=== PATIENT | male | born 1995 | race Asian ===

== ENCOUNTER → 2020-01-24 | Outpatient (CLI) | payer BC | END | disposition home or self-care (01) | LOC: RAD 08:50 | PROVIDERS: ATTEND Family Medicine | DX: E04.9 Nontoxic goiter, unspecified (principal) | CPT/HCPCS: 76536 ==

== ENCOUNTER 2020-01-30 08:40 | Outpatient (CLI) | payer BC | END 2020-01-30 23:59 | disposition home or self-care (01) | LOC: 64 CT 08:40 | PROVIDERS: ATTEND Otolaryngology | DX: J34.89 Other specified disorders of nose and nasal sinuses (principal); J32.9 Chronic sinusitis, unspecified | CPT/HCPCS: 70486 ==

== ENCOUNTER 2020-03-26 11:00 | Outpatient (CLI) | payer BC | END 2020-03-26 23:59 | disposition home or self-care (01) | LOC: CARD DIAG 11:00 | PROVIDERS: ATTEND Physician Assistant | DX: I36.1 Nonrheumatic tricuspid (valve) insufficiency (principal) | CPT/HCPCS: 93306 ==

== ENCOUNTER 2020-09-15 06:36 | Day surgery (SDC) | payer BC ==
[2020-09-08 14:53] LABS: BASOPHILS % (AUTO) 0.3 % (0-1); EOSINOPHILS # (AUTO) 0.2 X10'3 (0-0.9); EOSINOPHILS % (AUTO) 2.2 % (0-6); LYMPHOCYTES # (AUTO) 2.2 X10'3 (1.1-4.8); LYMPHOCYTES % (AUTO) 29.4 % (21-51); MEAN CORPUSCULAR HEMOGLOBIN 27.4 PG (27.0-31.0); MEAN CORPUSCULAR HGB CONC 32.9 g/dL (33.0-36.5); MEAN CORPUSCULAR VOLUME 83.4 FL (78-98); MEAN PLATELET VOLUME 8.6 FL (7.4-10.4); MONOCYTES # (AUTO) 0.8 X10'3 (0-0.9); MONOCYTES % (AUTO) 11.1 % (2-12); NEUTROPHILS # (AUTO) 4.2 X10'3 (1.8-7.7); PRE OP HEMATOCRIT 44.4 % (42.0-52.0); PRE OP HEMOGLOBIN 14.6 g/dL (14.0-17.9); PRE OP PLATELET COUNT 243 X10'3 (140-440); RED BLOOD COUNT 5.32 X10'6 (4.70-6.10); RED CELL DISTRIBUTION WIDTH 14.2 % (11.5-14.5)
[2020-09-08 14:57] LABS: PRE OP PROTIME 10.4 SECONDS (9.0-12.0)
[2020-09-08 14:58] LABS: ALKALINE PHOSPHATASE 52 IU/L (46-116); BLOOD UREA NITROGEN 17 MG/DL (7-18); BUN/CREATININE RATIO 20.2 (5.4-32.0); CALCIUM 8.9 MG/DL (8.5-10.1); CHLORIDE 104 MMOL/L (99-107); CREATININE 0.84 MG/DL (0.60-1.10); PRE OP ALT 44 U/L (30-65); PRE OP ANION GAP 8 (8-16); PRE OP AST 28 U/L (10-37); PRE OP BILIRUB, TOTAL 0.3 MG/DL (0.0-1.0); PRE OP GLUCOSE 95 MG/DL (70-104); PRE OP SODIUM 139 MMOL/L (135-145); TOTAL CARBON DIOXIDE 26.6 MMOL/L (24-32); TOTAL PROTEIN 7.9 G/DL (6.4-8.2); eGFR > 90 ML/MIN
[2020-09-15] VITALS (17 sets, daily range): BP systolic 136–162; BP diastolic 88–110
[~2020-09-15] VITALS: Ht 180.3 cm; Wt 96.3 kg
[~2020-09-15 06:36] MED LIST: AZEL137S4 BOTHNARES; FLUT16SP26 BOTHNARES; famotidine 20mg tablet PO ONE; oxymetazoline 15 ML nasal spray NS SCH; ringers solution, lacted 1,000 ML IV SCH
[2020-09-15] MEDS ORDERED: LIDOcaine 1% W/epiNEPHrine 1:100,000 20ml vial ONE (06:37)
[2020-09-15] MEDS ORDERED: cefTAZidime 1gm inj ONE (06:37)
[2020-09-15] MEDS ORDERED: mupirocin 2% ointment 22GM ONE (06:37)
[2020-09-15] MEDS ORDERED: cocaine 4% topical solution 4ml bottle ONE (06:37)
[2020-09-15] MEDS ORDERED: oxymetazoline 15 ML nasal spray NS ONE (06:38)
[2020-09-15] MEDS ORDERED: sevoflurane 250ml liquid IH ONE (07:55)
[2020-09-15] MEDS ORDERED: fentaNYL/PF 50MCG/1 ML 2ML syringe ONE ×2 (07:56→08:25)
[2020-09-15] MEDS ORDERED: midazolam 1 mg/ML 2ml injection ONE (07:57)
[2020-09-15] MEDS ORDERED: ondansetron/PF 4mg/2ml inj ONE (08:25)
[2020-09-15] MEDS ORDERED: propofol inj 20 ML IV ONE (08:25)
[2020-09-15] MEDS ORDERED: dexamethasone sod phosphate 4mg/ml inj. ONE (08:25)
[2020-09-15] MEDS ORDERED: LIDOcaine 2% (20mg/ml) 5ml vial ONE (08:25)
[2020-09-15] MEDS ORDERED: morphine 4 MG/ML inj SYRINge IV PRN (08:40)
[2020-09-15] MEDS ORDERED: morphine 2 MG/ML inj. syringe IV PRN (08:40)
[2020-09-15] MEDS ORDERED: ringers solution, lacted 1,000 ML IV SCH (08:40)
[2020-09-15] MEDS ORDERED: ondansetron/PF 4mg/2ml inj IV PRN (08:40)
[2020-09-15] MEDS ORDERED: proCHLORperazine 10 MG/2 ml inj IV PRN (08:40)
[2020-09-15] MEDS ORDERED: meperidine/PF 25mg/ml syringe IV PRN ×3 (08:40)
--- NOTE | 2020-09-15 09:15 | NUR ---
Received from OR via [facility] IN STABLE CONDITION , accompanied by Anesthesiologist and CARBURETOR SPECIALIST report given by [place]. Addendum: 09/15/20 at 0957 by Ernestine Back RN Amended: Links added.
[2020-09-15] MEDS ORDERED: labetalol 20mg/4ml (5mg/ml) syringe IV ONE (09:23)
--- NOTE | 2020-09-15 09:23 | NUR ---
OVERRIDE LABETALOL 5MG GIVEN PER DR. ANDREWS FOR HYPERTENSION. Addendum: 09/15/20 at 0957 by Ernestine Back RN Amended: Links added.
[2020-09-15] MEDS ORDERED: labetalol 5mg/ml 20ml inj. IV PRN (09:30)
[2020-09-15] MEDS ORDERED: hydrALAZINE 20mg/ml inj. IV PRN ×2 (09:45)
[2020-09-15] MEDS ORDERED: hydrALAZINE 20mg/ml inj. IV ONE (09:46)
[2020-09-15] MEDS ORDERED: acetaminophen 1,000mg/100ml IV 100 ML IV ONE (10:45)
--- NOTE | 2020-09-15 11:33 | NUR ---
PACKING REMOVED FROM [facility] BILATERALLY. Addendum: 09/15/20 at 1134 by Ernestine Back RN Amended: Links added.
[2020-09-15] MEDS ORDERED: salt irrigation nasal spray 45 ML SPRAY NS PRN (11:35)
--- NOTE | 2020-09-15 11:55 | NUR ---
PATIENT DISCHARGED VIA WHEELCHAIR IN STABLE CONDITION WITH RN AFTER WRITTEN AND VERBAL DISCHARGE INSTRUCTIONS GIVEN. PATIENT GAVE A VERBAL UNDERSTANDING OF INSTRUCTIONS GIVE. PATIENT ALSO USED NASAL SAILINE, AFRIN AND OINTMENT TO [facility] BEFORE LEAVING FACILITY. Addendum: 09/15/20 at 1219 by Ernestine Back RN Amended: Links added.
== END 2020-09-15 11:55 | disposition home or self-care (01) ==
LOC: PAS 06:36
PROVIDERS: ATTEND Otolaryngology
DX: J34.2 Deviated nasal septum (principal); J34.3 Hypertrophy of nasal turbinates; I10 Essential (primary) hypertension; Z79.01 Long term (current) use of anticoagulants; Z79.899 Other long term (current) drug therapy
CPT/HCPCS: 30140; 30520; 36415; 80053; 85025; 85576; 85610; 85730; A6402; C9250; J0131; J0360; J0713; J1100; J2001; J2175; J2250; J2405; J2704; J3010; J7120; A4618; A7000; J3490

== ENCOUNTER → 2020-12-31 | Outpatient (CLI) | payer BC ==
[~2020-12-31] MED LIST changes: +KETO10TA2 PO; +ORPH100T2 PO; -famotidine 20mg tablet PO ONE; -oxymetazoline 15 ML nasal spray NS SCH; -ringers solution, lacted 1,000 ML IV SCH
== END | disposition home or self-care (01) ==
LOC: RAD 13:07
PROVIDERS: ATTEND Family Medicine
DX: K59.00 Constipation, unspecified (principal)

== ENCOUNTER 2021-01-26 12:55 | Outpatient (CLI) | payer BC ==
[~2021-01-26 12:55] MED LIST changes: -KETO10TA2 PO; -ORPH100T2 PO
[2021-01-26 13:27] LABS: BASOPHILS % (AUTO) 0.2 % (0-1); EOSINOPHILS # (AUTO) 0.1 X10'3 (0-0.9); EOSINOPHILS % (AUTO) 1.2 % (0-6); HEMATOCRIT 47.5 % (42.0-52.0); HEMOGLOBIN 15.6 g/dl (14.0-17.9); LYMPHOCYTES # (AUTO) 1.7 X10'3 (1.1-4.8); MEAN CORPUSCULAR HEMOGLOBIN 27.6 PG (27.0-31.0); MEAN CORPUSCULAR HGB CONC 32.8 g/dL (33.0-36.5); MEAN CORPUSCULAR VOLUME 84.2 FL (78-98); MEAN PLATELET VOLUME 9.3 FL (7.4-10.4); MONOCYTES # (AUTO) 0.8 X10'3 (0-0.9); MONOCYTES % (AUTO) 11.4 % (2-12); NEUTROPHILS # (AUTO) 4.1 X10'3 (1.8-7.7); NEUTROPHILS % (AUTO) 61.2 % (42-75); PLATELET COUNT 251 X10'3 (140-440); RED BLOOD COUNT 5.65 X10'6 (4.70-6.10); RED CELL DISTRIBUTION WIDTH 13.7 % (11.5-14.5); WHITE BLOOD COUNT 6.7 X10'3 (4.5-11.0)
[2021-01-26 13:38] LABS: ALANINE AMINOTRANSFERASE 58 U/L (12-78); ALKALINE PHOSPHATASE 51 IU/L (46-116); ANION GAP 10 (8-16); ASPARTATE AMINO TRANSFERASE 27 U/L (10-37); BILIRUBIN,TOTAL 0.3 MG/DL (0.1-1.0); BLOOD UREA NITROGEN 14 MG/DL (7-18); BUN/CREATININE RATIO 16.5 (5.4-32.0); CHLORIDE 103 MMOL/L (99-107); CREATININE 0.85 MG/DL (0.60-1.10); GLUCOSE 110 MG/DL (70-104); POTASSIUM 3.9 MMOL/L (3.5-5.1); SODIUM 140 MMOL/L (135-145); TOTAL CARBON DIOXIDE 26.9 MMOL/L (24-32); TOTAL PROTEIN 8.2 G/DL (6.4-8.2); eGFR > 90 ML/MIN
== END 2021-01-26 23:59 | disposition home or self-care (01) ==
LOC: LAB 12:55
PROVIDERS: ATTEND Family Medicine
DX: K59.00 Constipation, unspecified (principal)
CPT/HCPCS: 36415; 80053; 85025

== ENCOUNTER 2021-02-15 09:57 | Emergency (ER) | payer BC ==
[~2021-02-15] VITALS: Ht 185.4 cm; Wt 94.5 kg
[2021-02-15 10:20] VITALS: BP 163/96
[2021-02-15] MEDS ORDERED: ORPH100T2 PO (11:51)
[2021-02-15] MEDS ORDERED: KETO10TA2 PO (11:51)
[2021-02-15] MEDS ORDERED: ketorolac trometh inj. 60 MG/2 ML VIAL IM ONE (11:55)
== END 2021-02-15 12:24 | disposition home or self-care (01) ==
LOC: ER 09:58 → EEVIPCON 09:58 → ER 12:24
DX: S39.012A Strain of muscle, fascia and tendon of lower back, initial encounter (principal); X58.XXXA Exposure to other specified factors, initial encounter; Y93.89 Activity, other specified; Y92.89 Other specified places as the place of occurrence of the external cause; Y99.8 Other external cause status
CPT/HCPCS: 96372; 99283; J1885

== ENCOUNTER 2021-05-01 08:14 | Emergency (ER) | payer BC ==
[~2021-05-01] VITALS: Ht 180.3 cm; Wt 92.0 kg
[~2021-05-01 08:14] MED LIST changes: +KETO10TA2 PO; +ORPH100T2 PO
[2021-05-01 08:36] VITALS: BP 136/95
[2021-05-01] MEDS ORDERED: acetaminophen 325mg tablet PO ONE (09:15)
[2021-05-01] MEDS ORDERED: ondansetron 4mg rapidly disintigrating tab PO ONE (09:15)
[2021-05-01] MEDS ORDERED: ibuprofen 200mg tablet PO ONE (09:15)
== END 2021-05-01 09:36 | disposition home or self-care (01) ==
LOC: ER 08:15 → EEVIPCON 08:15 → ER 09:36
DX: S00.03XA Contusion of scalp, initial encounter (principal); H92.02 Otalgia, left ear; F17.210 Nicotine dependence, cigarettes, uncomplicated; W19.XXXA Unspecified fall, initial encounter; Y93.89 Activity, other specified; Y92.89 Other specified places as the place of occurrence of the external cause; Y99.8 Other external cause status
CPT/HCPCS: 99284

== ENCOUNTER 2021-10-06 10:32 | Emergency (ER) | payer BC ==
[~2021-10-06] VITALS: Ht 167.6 cm; Wt 87.7 kg
[2021-10-06 10:57] VITALS: BP 127/79
[2021-10-06] MEDS ORDERED: CYCL-1 PO (13:08)
== END 2021-10-06 13:18 | disposition home or self-care (01) ==
LOC: ER 10:33 → EEVIPCON 10:33 → ER 13:18
DX: M54.50 Low back pain, unspecified (principal); Z79.899 Other long term (current) drug therapy
CPT/HCPCS: 99283

== ENCOUNTER 2021-11-18 09:24 | Outpatient (CLI) | payer BC ==
[~2021-11-18 09:24] MED LIST changes: +CYCL-1 PO
== END 2021-11-18 23:59 | disposition home or self-care (01) ==
LOC: RAD 09:24
PROVIDERS: ATTEND Physician Assistant
DX: M77.32 Calcaneal spur, left foot (principal); M25.571 Pain in right ankle and joints of right foot; M25.561 Pain in right knee
CPT/HCPCS: 73564; 73610

== ENCOUNTER 2021-12-20 09:43 | Outpatient (CLI) | payer BC | END 2021-12-20 23:59 | disposition home or self-care (01) | LOC: RAD 09:43 | PROVIDERS: ATTEND Physician Assistant | DX: M25.561 Pain in right knee (principal) | CPT/HCPCS: 73721 ==